=== PATIENT | male | born 1975 | race Caucasian/White ===

== ENCOUNTER 2022-12-23 16:34 | Outpatient (CLI) | payer BC, SELFPAY ==
[2022-12-23 13:36] LABS: Albumin* 4.3 g/dL (3.3-5.0); Chloride* 105 mmol/L (96-114)
[2022-12-23 13:37] LABS: Potassium* 4.3 mmol/L (3.6-5.1); Sodium* 136 mmol/L (135-149)
[2022-12-23 13:39] LABS: Alkaline Phosphatase* 44 U/L (40-150); Aspartate Amino Transferase* 26 U/L (12-35); Bilirubin Total* 0.6 mg/dL (0.1-1.5); Blood Urea Nitrogen* 16 mg/dL (5-24); Carbon Dioxide* 24 mmol/L (20-32); Cholesterol* 154 mg/dL (90-199); Estimated Glomerular Filt Rate 93 ml/min; Glucose* 116 mg/dL (60-115); Total Protein* 6.9 g/dL (6.0-8.3)
[2022-12-23 13:40] LABS: Alanine Aminotransferase* 32 U/L (4-50); Calcium* 9.2 mg/dL (8.4-10.6); HDL Cholesterol* 69 mg/dL (>=40); LDL Cholesterol Calculated 61 mg/dL (<100); Triglycerides* 118 mg/dL (40-149)
== END 2022-12-23 16:35 | disposition home or self-care (01) ==
PROVIDERS: PCP Nurse Practitioner Family; Visit Provider Nurse Practitioner Family
DX: E78.5 Hyperlipidemia, unspecified (principal); I10 Essential (primary) hypertension; Z51.81 Encounter for therapeutic drug level monitoring
CPT/HCPCS: 80053; 80061

== ENCOUNTER 2024-02-02 08:24 | Outpatient (CLI) | payer BC, SELFPAY ==
--- OUTSIDE RECORDS SUMMARY | 2024-02-02 08:27 | XMS_ITS ---
Author Organization [facility] Address [address] [place] [address] Care Team Providers Care Steno Pool Supervisor Name Role Phone Unavailable Unavailable Unavailable Surgery Details Not on file Complications Check Surgery Details section. Procedure Estimated Blood Loss Check Surgery Details section. Procedure Findings Check Surgery Details section. Procedure Specimens Taken Check Surgery Details section.
--- OUTSIDE RECORDS SUMMARY | 2024-02-02 08:27 | XMS_ITS | Referral Summary ---
Author Organization [facility] Address [address] [place] [address] Care Team Providers Care Bread Racker Name Role Phone Unavailable Primary Care Provider Unavailabl e Source Comments Patient records contain information from all sites at [facility]. For routine questions regarding patient records, call [phone] during business hours, M-F 8:00 AM - 5:00 PM Central Time. Record requests for emergency care only can be directed to [phone] at any time.[facility] Allergies No known active allergies Medications Medication Sig Dispensed Refills Start Date End Date Status lisinopriL (PRINIVIL,ZESTRIL) 10 mg tablet Take 10 mg by mouth daily. Active Immunizations Name Administration Dates Next Due Influenza, Unspecified 07/03/2014 SARS-COV-2 (COVID-19) - ORIN (J&J)(Discontinu ed) 03/24/2021 SARS-COV-2 (COVID-19) - MODERNA(Discontinued) Tdap 10/08/2020,02/20/2011 influenza vaccine quad (FLUZ ONE/FLUARIX) (6 months and older)(PF) 10/08/2020,05/17/2015 Social History Tobacco Use Types Packs/Day Years Used Date Smoking Tobacco: Never Social Connection and Isolat ion Panel [NHANES] Answer Date Recorded In a typical week, how many times do you talk on the phone with family, friends, or neighbors? Three times a week 07/10/2021 How often do you get togethe r with friends or relatives? Once a week 07/10/2021 How often do you attend [facility] or sabianist services? More than 4 times per year 07/10/2021 Do you belong to any clubs o r organizations such as amish groups, unions, fraternal or athletic groups, or school groups? Yes 07/10/2021 How often do you attend meet ings of the clubs or organizations you belong to? More than 4 times per year 07/10/2021 Are you , , di vorced, , never , or living with a partner? 07/10/2021 AUDIT-C Answer Date Recorded Q1: How often do you have a drink containing alc ohol? 2-4 times a month 07/10/2021 Q2: How many drinks containi ng alcohol do you have on a typical day when you are drinking? 1 or 2 07/10/2021 Q3: How often do you have si x or more drinks on one occasion? Less than monthly 07/10/2021 Overall Financial Resource Strain (CARDIA) Answe r Date Recorded How hard is it for you to pa y for the very basics like food, housing, medical care, and heating? Not hard at all 07/10/2021 [facility] - Occupational Stress Questionnaire Answer Date Recorded Do you feel stress - tense, restless, nervous, or anxious, or unable to sleep at night because your mind is troubled all the time - these days? Not at all 07/10/2021 Exercise Vital Sign Answer Date Recorde d On average, how many days pe r week do you engage in moderate to strenuous exercise (like a brisk walk)? 1 day 07/10/2021 On average, how many minutes do you engage in exercise at this level? 40 min 07/10/2021 Hunger Vital Sign Answer Date Recorded Within the past 12 months, y ou worried that your food would run out before you got the money to buy more. Never true 07/10/20 21 Within the past 12 months, t he food you bought just didn't last and you didn't have money to get more. Never true 07/10/2021 PRAPARE - Transportation Answer Date Re corded In the past 12 months, has l ack of transportation kept you from medical appointments or from getting medications? No 06/22 In the past 12 months, has l ack of transportation kept you from meetings, work, or from getting things needed for daily living? No 07/10/2021 Housing Stability Vital Sign Answer Jonathan e Recorded In the last 12 months, was t here a time when you were not able to pay the mortgage or rent on time? No 07/10/2021 In the last 12 months, how many places have you lived? 1 07/10/2021 In the last 12 months, was t here a time when you did not have a steady place to sleep or slept in a detention (including now)? No 07/10/2021 Nutrition Answer Date Recorded Nutrition: EVOO Fat Source No 07/10 On average, how many serving s of fruits and vegetables do you eat per day (serving size is equal to 1 cup or approximately the size of a tennis ball)? 2-3 07/10/2021 Dental Answer Date Recorded Dental: Regular Dentist Yes 09/01/19 Employment Answer Date Recorded Employment status Employed and actively working without restrictions 07/10/2021 Education Answer Date Recorded What is the highest level of school you have completed or the highest degree you have received? Associate degree: occupational, technical, or vocational program 07/10/2021 Sex and Gender Information Value Date Recorded Sex Assigned at Male 07/10/2021 6:58 AM [employer] Gender Identity Male 08/20/2020 9:46 PM [employer]URKEY [employer]ER Sexual Orientation Straight 08/20/2020 9: 46 PM [employer]URKEY BONER Last Filed Vital Signs Vital Sign Reading Time Taken Comments Blood Pressure 120/80 07/03/2014 8:20 AM TURKEY BONER Pulse 72 07/03/2014 8:20 AM TURKEY BONER Temperature - - Respiratory Rate 16 07/03/2014 8:20 AM TURKEY BONER Oxygen Saturation - - Inhaled Oxygen Concentration - - Weight 83.1 kg (183 lb 3.2 oz) 02/14/2014 9:01 A M CDT Height 174 cm (5' 8.5) 07/03/2014 8:20 AM TURKEY BONER Body Mass Index 27.45 02/14/2014 9:01 AM CDT Plan of Treatment Not on file Procedures Procedure Name Priority Date/Time Associated Diagnosis Comments LIPID PANEL, S Routine 07/03/2014 9:12 AM TURKEY BONER from Last 3 Months or Most Recently Relevant to Health Maintenance Results * (ABNORMAL) Lipid Panel (07/03/2014 9:12 AM TURKEY BONER) Cholesterol, Total 248(H) 0 - 200 MGDL POWERCHART Comment: <200 mg/dL Desirable 200-239 mg/dL Borderline High >239 mg/dL High HX HDL 67(H) 35 - 60 MGDL POWERCHART Comment: > 60 mg/dL Desirable 40 ? 60 mg/dL Low Risk <40 mg/dL Undesirable Triglycerides 171(H) 9 - 150 MGDL POWERCHART Comment: <150 mg/dL Desirable 150-199 mg/dL Borderline High 200-499 mg/dL High > 499 Very High Calculated LDL 147(H) 100 - 129 MGDL POWERCHART Total Cholesterol/HDL Ratio 4 POWERCHART Blood 07/03/2014 9:12 AM [employer]UR[employer] Becky Lantigua M.D. LAB BLOOD ADD-ON POWERCHART from Last 3 Months or Most Recently Relevant to Health Maintenance
--- OUTSIDE RECORDS SUMMARY | 2024-02-02 08:27 | XMS_ITS | Clinical Summary ---
Author Organization [facility] Address [address] [place] [address] Care Team Providers Care Striping Machine Operator Name Role Phone Unavailable Primary Care Provider Unavailabl e Source Comments Patient records contain information from all sites at [facility]. For routine questions regarding patient records, call [phone] during business hours, M-F 8:00 AM - 5:00 PM Central Time. Record requests for emergency care only can be directed to [phone] at any time.[facility] Allergies No known active allergies Medications Medication Sig Dispensed Refills Start Date End Date Status lisinopriL (PRINIVIL,ZESTRIL) 10 mg tablet Take 10 mg by mouth daily. Active Immunizations Name Administration Dates Next Due Influenza, Unspecified 07/03/2014 SARS-COV-2 (COVID-19) - ORIN (J&J)(Discontinu ed) 03/24/2021 SARS-COV-2 (COVID-19) - MODERNA(Discontinued) Tdap 10/08/2020,02/20/2011 influenza vaccine quad (FLUZ ONE/FLUARIX) (6 months and older)(PF) 10/08/2020,05/17/2015 Family History Medical History Relation Name Comments Heart attack Uncle from [place] Relation Name Status Comments Uncle Social History Tobacco Use Types Packs/Day Years [...] week 07/10/2021 How often do you attend chur ch or rastafari services? More than 4 times per year 07/10/2021 Do you belong to any clubs o r organizations such as buddhism groups, unions, fraternal or athletic groups, or [...] and heating? Not hard at all 07/10/2021 [facility] - Occupational Stress [...] place to sleep or slept in a jail (including now)? No 07/10/2021 Nutrition Answer Date [...] Sex Assigned at Male 07/10/2021 6:58 AM [employer]ER Gender Identity Male 08/20/2020 9:46 PM [employer]IVERSAL [employer]ER Sexual Orientation Straight 08/20/2020 9: 46 PM [employer]IVERSAL B[employer]ER Last Filed Vital Signs Vital Sign Reading Time Taken Comments Blood Pressure 120/80 07/03/2014 8:20 AM [employer]IVERSAL BANKER Pulse 72 07/03/2014 8:20 AM UNIVERSAL BANKER Temperature - - Respiratory Rate 16 07/03/2014 8:20 AM UNIVERSAL BANKER Oxygen Saturation - - Inhaled Oxygen Concentration - - Weight 83.1 kg (183 lb 3.2 oz) 02/14/2014 9:01 A M CDT Height 174 cm (5' 8.5) 07/03/2014 8:20 AM UNIVERSAL BANKER Body Mass Index 27.45 02/14/2014 9:01 AM CDT Plan of Treatment Health Maintenance Due Date Last Done Comments CT Colonography 1974 Cologuard 1974 Colonoscopy 1974 Colorectal Cancer Screening 1974 Creatinine Level (Kidney Function Test) 1974 FIT 1974 Fasting Glucose for Diabetes Screening 1974 HIV Screening 1974 Hepatitis C Screening 1974 Potassium Level 1974 Sodium Level 1974 Hepatitis B Vaccines (1 of 3 - 19+ 3-dose series) 1993 Lipid (Cholesterol) Screening 07/03/2019 07/03/2014 COVID-19 Vaccine (3 - 2022-2 4 season) 2023 09/03/2021, 03/24/2021 Influenza Vaccine (#1) 2023 , 05/17/2015, 07/03/2014 Depression Screening (Annual PHQ-2) 08/22/2023 DTaP,Tdap,and Td Vaccines (3 - Td or Tdap) 10/08/2030 10/08/2020, 02/20/2011 Pneumococcal vaccine (0-64 years) Aged Out No longer eligible b ased on patient's age to complete this topic Procedures Procedure Name Priority Date/Time Associated Diagnosis Comments LIPID PANEL, S Routine 07/03/2014 9:12 AM UNIVERSAL BANKER from Last 3 Months or Most Recently Relevant to Health Maintenance Results * (ABNORMAL) Lipid Panel (07/03/2014 9:12 AM UNIVERSAL BANKER) Cholesterol, Total 248(H) 0 - 200 MGDL [...] Ratio 4 POWERCHART Blood 07/03/2014 9:12 AM [employer]IV[employer]ER Becky Lantigua M.D. LAB BLOOD ADD-ON POWERCHART from Last 3 Months or Most Recently Relevant to Health Maintenance
== END 2024-02-02 08:25 | disposition home or self-care (01) ==
PROVIDERS: PCP Nurse Practitioner Family; Visit Provider Nurse Practitioner Family
DX: I10 Essential (primary) hypertension (principal); E78.5 Hyperlipidemia, unspecified; Z13.0 Encounter for screening for diseases of the blood and blood-forming organs and certain disorders involving the immune mechanism
CPT/HCPCS: 80053; 80061; 85025

== ENCOUNTER 2024-08-30 12:32 | Outpatient (CLI) | payer BC, SELFPAY | END 2024-08-30 12:33 | disposition home or self-care (01) | PROVIDERS: PCP Nurse Practitioner Family; Visit Provider Nurse Practitioner Family | DX: E78.5 Hyperlipidemia, unspecified (principal); Z13.1 Encounter for screening for diabetes mellitus | CPT/HCPCS: 80061; 82947 ==

== ENCOUNTER 2025-03-25 08:24 | Outpatient (CLI) | payer BC, SELFPAY | END 2025-03-25 08:25 | disposition home or self-care (01) | PROVIDERS: PCP Nurse Practitioner Family; Visit Provider Nurse Practitioner Family | DX: E78.5 Hyperlipidemia, unspecified (principal); I10 Essential (primary) hypertension; Z12.5 Encounter for screening for malignant neoplasm of prostate | CPT/HCPCS: 80053; 80061; 85025; G0103 ==